=== PATIENT | female | born 1945 | race Caucasian/White ===

== ENCOUNTER 2020-11-27 00:21 | Inpatient (IN) ==
[2020-11-27] MEDS ORDERED: PANTOPRAZOLE 40 MG VIAL IV STA (00:56)
[2020-11-27] MEDS ORDERED: SODIUM CHLORIDE 0.9% 500 ML IV STA (00:56)
[2020-11-27] MEDS ORDERED: ONDANSETRON 4 MG/2 ML VIAL IV STA (00:56)
[2020-11-27] MEDS ORDERED: MORPHINE 4 MG/1 ML VIAL IV STA (00:56)
[2020-11-27 01:11] LABS: PT Patient Result 10.9 SECS (9.8-11.9)
[2020-11-27 01:20] LABS: Alanine Aminotransferase 12 U/L (13-56); Alkaline Phosphatase 57 U/L (45-117); Amylase 36 U/L (25-115); Aspartate Amino Transferase 59 U/L (0-37); Blood Urea Nitrogen 20 MG/DL (7-18); Calcium 8.9 MG/DL (8.5-10.1); Carbon Dioxide 25 MMOL/L (21-32); Estimated Glom Filtration Rate 37 ML/MIN; Glucose 145 MG/DL (74-106); Osmolality,Calculated 275.1 MOS/KG (273-304); Potassium 4.4 MMOL/L (3.5-5.1); Sodium 135 MMOL/L (136-145); Total Protein 6.6 G/DL (6.4-8.3)
[2020-11-27 01:23] LABS: Basophils % 0.3 % (0.0-0.8); Eosinophils # 0.2 10*3/uL (0.0-0.87); Eosinophils % 3.6 % (0.00-10.9); Hematocrit 32.1 VOL% (35.7-47.0); Hemoglobin 10.7 GM/DL (12.0-16.0); Immature Granulocytes % 2.6 %; Immature Granulocytes Absolute 0.15 #; Lymphocytes # 1.2 10*3/uL (1.4-4.0); Lymphocytes % 20.1 % (21.3-54.2); Mean Corpuscular HGB Conc 33.3 GM/DL (32-36); Mean Platelet Volume 10.4 FL (9.6-12.0); Monocytes % 10.5 % (1.7-12.7); Neutrophils % 62.9 % (38.7-73.9); Platelet Count 250 T/CUMM (130-400); Red Blood Count 3.69 MC/CUMM (3.8-5.5); Red Cell Distribution Width 12.3 % (9.3-17.3); White Blood Count 5.8 T/CUMM (4-12)
[2020-11-27] MEDS ORDERED: PIPERACILLIN/TAZOBACTAM 3,375 MG in SODIUM CHLORIDE 0.9% 100 ML IV STA (02:25)
[2020-11-27] MEDS ORDERED: GLUCAGON 1 MG VIAL IM PRN ×2 (03:16→03:45)
[2020-11-27] MEDS ORDERED: ONDANSETRON 4 MG/2 ML VIAL IV PRN (03:16)
[2020-11-27] MEDS ORDERED: DEXTROSE 50% 25 GM/50 ML VIAL IV PRN (03:16)
[2020-11-27] MEDS: SODIUM CHLORIDE 0.9% 1,000 ML IV SCH ×2 (03:55→18:30)
[2020-11-27] MEDS ORDERED: SODIUM CHLORIDE 0.9% 1,000 ML IV PRN (05:02)
[2020-11-27 05:44] LABS: Hematocrit 27.8 VOL% (35.7-47.0)
[2020-11-27] MEDS ORDERED: MAGNESIUM SULF RIDER 4 GM in PREMIX 1 EACH IV PRN (05:50)
[2020-11-27] MEDS ORDERED: MAGNESIUM SULF RIDER 2 GM in PREMIX 1 EACH IV PRN (05:50)
[2020-11-27 07:55] LABS: Bilirubin,Urine Negative (Negative); Blood, Urine Small mg/dL (Negative); Glucose,Urine (UA) Negative (Negative); Ketones,Urine Negative (Negative); Nitrite,Urine Negative (Negative); Protein,Urine Negative; RBC,Urine 1 /HPF (0-4); Squamous Epithelial Cell,Urine Occasional /HPF (0-10); Urine Appearance CLEAR (Clear); Urine Color Straw (Yellow); Urine Specific Gravity 1.039 (1.001-1.035); Urine Urobilinogen < 2.0 EU/DL (0.2-1.0); WBC,Urine <1 /HPF (0-6)
[2020-11-27 09:24] LABS: Hematocrit 23.9 VOL% (35.7-47.0); Hemoglobin 7.8 GM/DL (12.0-16.0)
[2020-11-27] MEDS: PIPERACILLIN/TAZOBACTAM 3,375 MG in SODIUM CHLORIDE 0.9% 100 ML IV SCH ×2 (11:05→20:44)
[2020-11-27] MEDS: SIMVASTATIN 20 MG TABLET PO SCH (20:08)
[2020-11-27] MEDS: traZODone 50 MG TABLET PO SCH (20:08)
[2020-11-27] MEDS: MORPHINE 4 MG/1 ML VIAL IV PRN (21:18)
[2020-11-27 21:37] LABS: Hematocrit 34.7 VOL% (35.7-47.0); Hemoglobin 11.2 GM/DL (12.0-16.0)
[2020-11-28] MEDS: PIPERACILLIN/TAZOBACTAM 3,375 MG in SODIUM CHLORIDE 0.9% 100 ML IV SCH ×4 (02:52→22:29)
[2020-11-28] MEDS: SODIUM CHLORIDE 0.9% 1,000 ML IV SCH ×3 (02:56→21:43)
[2020-11-28 06:54] LABS: Basophils % 0.4 % (0.0-0.8); Eosinophils # 0.1 10*3/uL (0.0-0.87); Eosinophils % 2.5 % (0.00-10.9); Hematocrit 30.5 VOL% (35.7-47.0); Hemoglobin 10.4 GM/DL (12.0-16.0); Immature Granulocytes % 4.6 %; Immature Granulocytes Absolute 0.24 #; Lymphocytes # 0.8 10*3/uL (1.4-4.0); Mean Corpuscular HGB Conc 34.1 GM/DL (32-36); Mean Corpuscular Volume 83.1 FL (87-102); Mean Platelet Volume 9.2 FL (9.6-12.0); Neutrophils % 67.5 % (38.7-73.9); Red Blood Count 3.67 MC/CUMM (3.8-5.5); Red Cell Distribution Width 14.1 % (9.3-17.3); White Blood Count 5.2 T/CUMM (4-12)
[2020-11-28 06:54] LABS: Osmolality,Calculated 279.3 MOS/KG (273-304)
[2020-11-28 06:57] LABS: Albumin 2.4 G/DL (3.4-5.0); Bilirubin,Direct 0.12 MG/DL (0.0-0.20); Bilirubin,Indirect 0.6 MG/DL (0.0-1.0); Bilirubin,Total 0.7 MG/DL (0.2-1.0); Total Protein 5.4 G/DL (6.4-8.3)
[2020-11-28 07:09] LABS: Platelet Count 145 T/CUMM (130-400)
[2020-11-28] MEDS: POTASSIUM CHLORIDE RIDER 10 MEQ in PREMIX 1 EACH IV PRN ×4 (11:02→23:03)
[2020-11-28] MEDS: MORPHINE 4 MG/1 ML VIAL IV PRN (12:05)
[2020-11-28 15:28] LABS: Hematocrit 31.1 VOL% (35.7-47.0); Hemoglobin 10.3 GM/DL (12.0-16.0)
[2020-11-28] MEDS ORDERED: SODIUM CHLORIDE 0.9% 1,000 ML IV PRN (16:25)
[2020-11-28] MEDS ORDERED: fentaNYL 100 MCG/2 ML VIAL IV ONE (16:32)
[2020-11-28] MEDS ORDERED: MIDAZOLAM 2 MG/2 ML VIAL IV ONE (16:32)
[2020-11-28] MEDS ORDERED: fentaNYL 100 MCG/2 ML VIAL ONE (16:34)
[2020-11-28] MEDS ORDERED: MIDAZOLAM 2 MG/2 ML VIAL ONE (16:34)
[2020-11-28] MEDS ORDERED: HEPARIN/NACL 0.9% 2 UNITS/ML 3,000 ML IV ONE (16:40)
[2020-11-28 19:17] LABS: Hematocrit 24.6 VOL% (35.7-47.0)
[2020-11-28] MEDS: SIMVASTATIN 20 MG TABLET PO SCH (21:37)
[2020-11-28] MEDS: traZODone 50 MG TABLET PO SCH (21:38)
[2020-11-28 22:13] LABS: Hemoglobin 7.9 GM/DL (12.0-16.0)
[2020-11-29] MEDS: POTASSIUM CHLORIDE RIDER 10 MEQ in PREMIX 1 EACH IV PRN (00:27)
[2020-11-29] MEDS: PIPERACILLIN/TAZOBACTAM 3,375 MG in SODIUM CHLORIDE 0.9% 100 ML IV SCH ×3 (06:00→21:07)
[2020-11-29 06:35] LABS: Basophils % 0.3 % (0.0-0.8); Eosinophils % 0.2 % (0.00-10.9); Hematocrit 24.4 VOL% (35.7-47.0); Hemoglobin 8.5 GM/DL (12.0-16.0); Immature Granulocytes % 5.4 %; Immature Granulocytes Absolute 0.49 #; Lymphocytes # 1.3 10*3/uL (1.4-4.0); Mean Corpuscular HGB Conc 34.8 GM/DL (32-36); Mean Corpuscular Volume 83.6 FL (87-102); Mean Platelet Volume 9.4 FL (9.6-12.0); Monocytes % 8.7 % (1.7-12.7); Neutrophils % 71.4 % (38.7-73.9); Platelet Count 162 T/CUMM (130-400); Red Blood Count 2.92 MC/CUMM (3.8-5.5); Red Cell Distribution Width 13.9 % (9.3-17.3); White Blood Count 9.1 T/CUMM (4-12)
[2020-11-29 07:00] LABS: Lymphocytes 14 % (20-55); Platelet Estimate Normal; Segmented Neutrophils 80 % (50-85); Total Cells Counted 100
[2020-11-29 07:01] LABS: Hypochromasia Slight; Microcytosis Slight
[2020-11-29 07:02] LABS: Alanine Aminotransferase < 9 U/L (13-56); Albumin 2.2 G/DL (3.4-5.0); Alkaline Phosphatase 30 U/L (45-117); Aspartate Amino Transferase 12 U/L (0-37); Blood Urea Nitrogen 9 MG/DL (7-18); Calcium 7.3 MG/DL (8.5-10.1); Carbon Dioxide 25 MMOL/L (21-32); Estimated Glom Filtration Rate 51 ML/MIN; Glucose 114 MG/DL (74-106); Osmolality,Calculated 282.1 MOS/KG (273-304); Potassium 3.6 MMOL/L (3.5-5.1); Sodium 142 MMOL/L (136-145); Total Protein 4.5 G/DL (6.4-8.3)
[2020-11-29] MEDS: POTASSIUM CHLORIDE 20 MEQ TABLET PO PRN (07:02)
[2020-11-29] MEDS: MORPHINE 4 MG/1 ML VIAL IV PRN ×2 (08:15→19:49)
[2020-11-29 10:39] LABS: Hematocrit 27.3 VOL% (35.7-47.0); Hemoglobin 9.2 GM/DL (12.0-16.0)
[2020-11-29] MEDS: SODIUM CHLORIDE 0.9% 1,000 ML IV SCH (17:31)
[2020-11-29 18:37] LABS: Hematocrit 25.9 VOL% (35.7-47.0); Hemoglobin 8.7 GM/DL (12.0-16.0)
[2020-11-29] MEDS: SIMVASTATIN 20 MG TABLET PO SCH (21:06)
[2020-11-29] MEDS: traZODone 50 MG TABLET PO SCH (21:06)
[2020-11-30 01:34] LABS: Basophils % 0.2 % (0.0-0.8); Eosinophils # 0.3 10*3/uL (0.0-0.87); Eosinophils % 2.9 % (0.00-10.9); Hematocrit 24.2 VOL% (35.7-47.0); Hemoglobin 8.2 GM/DL (12.0-16.0); Immature Granulocytes % 4.9 %; Immature Granulocytes Absolute 0.47 #; Lymphocytes # 1.2 10*3/uL (1.4-4.0); Lymphocytes % 12.8 % (21.3-54.2); Mean Corpuscular HGB Conc 33.9 GM/DL (32-36); Mean Corpuscular Volume 84.9 FL (87-102); Mean Platelet Volume 9.4 FL (9.6-12.0); NRBC # 0.02 10*3/uL; Neutrophils % 69.2 % (38.7-73.9); Platelet Count 138 T/CUMM (130-400); Red Blood Count 2.85 MC/CUMM (3.8-5.5); Red Cell Distribution Width 14.5 % (9.3-17.3); White Blood Count 9.5 T/CUMM (4-12)
[2020-11-30 01:55] LABS: Alanine Aminotransferase < 9 U/L (13-56); Albumin 2.1 G/DL (3.4-5.0); Alkaline Phosphatase 32 U/L (45-117); Aspartate Amino Transferase 10 U/L (0-37); Blood Urea Nitrogen 5 MG/DL (7-18); Calcium 7.4 MG/DL (8.5-10.1); Carbon Dioxide 30 MMOL/L (21-32); Estimated Glom Filtration Rate 58 ML/MIN; Glucose 101 MG/DL (74-106); Osmolality,Calculated 279.1 MOS/KG (273-304); Potassium 3.4 MMOL/L (3.5-5.1); Sodium 142 MMOL/L (136-145); Total Protein 4.7 G/DL (6.4-8.3)
[2020-11-30] MEDS: SODIUM CHLORIDE 0.9% 1,000 ML IV SCH ×2 (04:56→16:49)
[2020-11-30] MEDS: PIPERACILLIN/TAZOBACTAM 3,375 MG in SODIUM CHLORIDE 0.9% 100 ML IV SCH (06:31)
[2020-11-30] MEDS: POTASSIUM CHLORIDE 20 MEQ TABLET PO PRN ×5 (07:13→23:22)
[2020-11-30] MEDS: CIPROFLOXACIN 500 MG TABLET PO SCH ×2 (10:48→21:25)
[2020-11-30 11:37] LABS: Hematocrit 24.6 VOL% (35.7-47.0); Hemoglobin 8.3 GM/DL (12.0-16.0)
[2020-11-30] MEDS: metroNIDAZOLE 500 MG TABLET PO SCH ×2 (14:41→21:25)
[2020-11-30] MEDS: traZODone 50 MG TABLET PO SCH (21:25)
[2020-11-30] MEDS: SIMVASTATIN 20 MG TABLET PO SCH (21:25)
[2020-11-30] MEDS: MORPHINE 4 MG/1 ML VIAL IV PRN (21:28)
[2020-12-01] MEDS: SODIUM CHLORIDE 0.9% 1,000 ML IV SCH (02:20)
[2020-12-01] MEDS: metroNIDAZOLE 500 MG TABLET PO SCH ×3 (05:45→21:46)
[2020-12-01 06:15] LABS: Basophils % 0.1 % (0.0-0.8); Eosinophils # 0.2 10*3/uL (0.0-0.87); Eosinophils % 2.8 % (0.00-10.9); Hematocrit 22.5 VOL% (35.7-47.0); Hemoglobin 7.5 GM/DL (12.0-16.0); Immature Granulocytes % 3.5 %; Lymphocytes # 0.8 10*3/uL (1.4-4.0); Lymphocytes % 9.5 % (21.3-54.2); Mean Corpuscular HGB Conc 33.3 GM/DL (32-36); Mean Corpuscular Volume 85.9 FL (87-102); Mean Platelet Volume 9.4 FL (9.6-12.0); Monocytes % 8.2 % (1.7-12.7); Neutrophils % 75.9 % (38.7-73.9); Platelet Count 139 T/CUMM (130-400); Red Blood Count 2.62 MC/CUMM (3.8-5.5); Red Cell Distribution Width 14.5 % (9.3-17.3); White Blood Count 8.5 T/CUMM (4-12)
[2020-12-01 06:32] LABS: Calcium 7.7 MG/DL (8.5-10.1); Osmolality,Calculated 282.8 MOS/KG (273-304)
[2020-12-01] MEDS ORDERED: SODIUM CHLORIDE 0.9% 1,000 ML IV PRN ×2 (06:37→07:12)
[2020-12-01 06:50] LABS: Platelet Estimate Adequate
[2020-12-01 06:51] LABS: Anisocytosis 1+
[2020-12-01] MEDS: CIPROFLOXACIN 500 MG TABLET PO SCH ×2 (08:38→21:47)
[2020-12-01] MEDS: ACETAMINOPHEN 325 MG TABLET PO PRN ×2 (10:32→21:50)
[2020-12-01] MEDS: traZODone 50 MG TABLET PO SCH (21:47)
[2020-12-01] MEDS: SIMVASTATIN 20 MG TABLET PO SCH (21:47)
[2020-12-02] MEDS: metroNIDAZOLE 500 MG TABLET PO SCH (05:25)
[2020-12-02] MEDS: SODIUM CHLORIDE 0.9% 1,000 ML IV SCH ×2 (05:34→23:24)
[2020-12-02 06:49] LABS: Mean Platelet Volume 9.3 FL (9.6-12.0)
[2020-12-02 06:54] LABS: Basophils % 0.4 % (0.0-0.8); Eosinophils # 0.3 10*3/uL (0.0-0.87); Eosinophils % 3.1 % (0.00-10.9); Hematocrit 33.4 VOL% (35.7-47.0); Immature Granulocytes % 4.2 %; Immature Granulocytes Absolute 0.45 #; Lymphocytes # 1.2 10*3/uL (1.4-4.0); Mean Corpuscular HGB Conc 33.2 GM/DL (32-36); Mean Corpuscular Volume 86.5 FL (87-102); Monocytes % 7.3 % (1.7-12.7); Platelet Count 164 T/CUMM (130-400); Red Cell Distribution Width 14.9 % (9.3-17.3); White Blood Count 10.7 T/CUMM (4-12)
[2020-12-02 06:56] LABS: Red Blood Count 3.86 MC/CUMM (3.8-5.5)
[2020-12-02 06:57] LABS: Hemoglobin 11.1 GM/DL (12.0-16.0)
[2020-12-02 07:08] LABS: Calcium 8.2 MG/DL (8.5-10.1); Osmolality,Calculated 275.4 MOS/KG (273-304); Potassium 3.7 MMOL/L (3.5-5.1)
[2020-12-02] MEDS: CIPROFLOXACIN 500 MG TABLET PO SCH (10:11)
[2020-12-02] MEDS: CIPROFLOXACIN INJ 400 MG in PREMIX 1 EACH IV SCH (12:09)
[2020-12-02] MEDS: metroNIDAZOLE INJ 500 MG in PREMIX 1 EACH IV SCH ×2 (13:37→21:40)
[2020-12-02] MEDS: ACETAMINOPHEN 325 MG TABLET PO PRN (17:35)
[2020-12-02] MEDS: traZODone 50 MG TABLET PO SCH (21:40)
[2020-12-02] MEDS: SIMVASTATIN 20 MG TABLET PO SCH (21:40)
[2020-12-02] MEDS: MORPHINE 4 MG/1 ML VIAL IV PRN (21:49)
[2020-12-03] MEDS: CIPROFLOXACIN INJ 400 MG in PREMIX 1 EACH IV SCH ×2 (00:53→11:39)
[2020-12-03] MEDS: metroNIDAZOLE INJ 500 MG in PREMIX 1 EACH IV SCH ×3 (05:32→21:26)
[2020-12-03 06:21] LABS: Basophils % 0.4 % (0.0-0.8); Eosinophils # 0.3 10*3/uL (0.0-0.87); Eosinophils % 3.5 % (0.00-10.9); Hematocrit 30.1 VOL% (35.7-47.0); Immature Granulocytes % 3.6 %; Immature Granulocytes Absolute 0.28 #; Lymphocytes % 12.3 % (21.3-54.2); Mean Corpuscular HGB Conc 33.2 GM/DL (32-36); Mean Corpuscular Volume 86.5 FL (87-102); Mean Platelet Volume 9.6 FL (9.6-12.0); Neutrophils % 72.2 % (38.7-73.9); Platelet Count 180 T/CUMM (130-400); Red Blood Count 3.48 MC/CUMM (3.8-5.5); Red Cell Distribution Width 14.9 % (9.3-17.3); White Blood Count 7.8 T/CUMM (4-12)
[2020-12-03 07:10] LABS: Calcium 7.8 MG/DL (8.5-10.1); Osmolality,Calculated 277.3 MOS/KG (273-304); Potassium 3.4 MMOL/L (3.5-5.1)
[2020-12-03] MEDS: POTASSIUM CHLORIDE 20 MEQ TABLET PO PRN (10:14)
[2020-12-03] MEDS: ACETAMINOPHEN 325 MG TABLET PO PRN (16:00)
[2020-12-03] MEDS: traZODone 50 MG TABLET PO SCH (21:06)
[2020-12-03] MEDS: SIMVASTATIN 20 MG TABLET PO SCH (21:06)
[2020-12-03] MEDS ORDERED: ALUMINUM/MAGNES/SIMETH MAX STR 30 ML UDCUP PO PRN (21:23)
[2020-12-04] MEDS: CIPROFLOXACIN INJ 400 MG in PREMIX 1 EACH IV SCH (00:39)
[2020-12-04] MEDS: metroNIDAZOLE INJ 500 MG in PREMIX 1 EACH IV SCH (05:02)
[2020-12-04 06:53] LABS: Basophils # 0.1 10*3/uL (0.0-0.2); Basophils % 0.6 % (0.0-0.8); Eosinophils # 0.2 10*3/uL (0.0-0.87); Eosinophils % 2.5 % (0.00-10.9); Hematocrit 31.4 VOL% (35.7-47.0); Hemoglobin 10.7 GM/DL (12.0-16.0); Immature Granulocytes % 3.4 %; Lymphocytes # 0.9 10*3/uL (1.4-4.0); Lymphocytes % 10.2 % (21.3-54.2); Mean Corpuscular HGB Conc 34.1 GM/DL (32-36); Mean Corpuscular Volume 84.9 FL (87-102); Mean Platelet Volume 9.3 FL (9.6-12.0); Monocytes % 7.7 % (1.7-12.7); Neutrophils % 75.6 % (38.7-73.9); Platelet Count 205 T/CUMM (130-400); White Blood Count 8.7 T/CUMM (4-12)
[2020-12-04 07:21] LABS: Calcium 8.4 MG/DL (8.5-10.1); Osmolality,Calculated 279.1 MOS/KG (273-304); Potassium 3.7 MMOL/L (3.5-5.1)
[2020-12-04 08:31] VITALS: BP 128/54
[2020-12-04] MEDS ORDERED: FLUCONAZOLE 100 MG TABLET PO ONE (09:00)
[2020-12-04] MEDS ORDERED: PANTOPRAZOLE 40 MG TABLET PO SCH (09:00)
== END 2020-12-04 12:10 | disposition home or self-care (01) | DRG 357 ==
LOC: N.ED 00:21 → N.3E 00:21 → SUATTDRO 14:15
PROVIDERS: ADMIT Emergency Medicine; ATTEND Internal Medicine

== ENCOUNTER 2021-02-12 05:39 | Inpatient (IN) ==
[2021-02-04 11:20] LABS: Basophils % 0.2 % (0.0-0.8); Eosinophils # 0.1 10*3/uL (0.0-0.87); Eosinophils % 2.1 % (0.00-10.9); Hematocrit 40.5 VOL% (35.7-47.0); Immature Granulocytes % 0.6 %; Immature Granulocytes Absolute 0.03 #; Lymphocytes # 1.2 10*3/uL (1.4-4.0); Mean Corpuscular HGB Conc 32.1 GM/DL (32-36); Mean Corpuscular Volume 90.2 FL (87-102); Monocytes % 9.1 % (1.7-12.7); Platelet Count 171 T/CUMM (130-400); Red Blood Count 4.49 MC/CUMM (3.8-5.5); Red Cell Distribution Width 13.8 % (9.3-17.3); White Blood Count 4.7 T/CUMM (4-12)
[2021-02-04 16:28] LABS: Calcium 9.4 MG/DL (8.5-10.1); Osmolality,Calculated 283.1 MOS/KG (273-304); Potassium 3.9 MMOL/L (3.5-5.1)
[2021-02-12] MEDS ORDERED: ROCURONIUM 50 MG/5 ML VIAL IV ONE (06:04)
[2021-02-12] MEDS ORDERED: ONDANSETRON 4 MG/2 ML VIAL ONE ×2 (06:04→09:03)
[2021-02-12] MEDS ORDERED: propofoL 200 MG/20 ML VIAL IV ONE (06:04)
[2021-02-12] MEDS ORDERED: LIDOCAINE 2% 5 ML VIAL ONE (06:04)
[2021-02-12] MEDS ORDERED: INDOCYANINE GREEN 25 MG VIAL IV ONE ×2 (06:20→08:52)
[2021-02-12] MEDS ORDERED: SCOPOLAMINE 1.5 MG PATCH TRANSDERM ONE (06:24)
[2021-02-12] MEDS ORDERED: ACETAMINOPHEN 500 MG TABLET PO ONE (06:30)
[2021-02-12] MEDS ORDERED: cefOXitin 1,000 MG in SODIUM CHLORIDE 0.9% 100 ML IV ONE (06:30)
[2021-02-12] MEDS ORDERED: LACTATED RINGERS 1,000 ML IV SCH (06:30)
[2021-02-12] MEDS ORDERED: FAMOTIDINE 20 MG TABLET PO ONE (06:30)
[2021-02-12] MEDS ORDERED: ROPIVACAINE 0.5% 30 ML VIAL ONE (06:38)
[2021-02-12] MEDS ORDERED: fentaNYL 100 MCG/2 ML VIAL ONE ×2 (06:40→08:26)
[2021-02-12] MEDS ORDERED: ALBUMIN 5% 12.5 GM/250 ML VIAL IV ONE (07:22)
[2021-02-12] MEDS ORDERED: ePHEDrine 50 MG/ML VIAL ONE (07:27)
[2021-02-12] MEDS ORDERED: ETOMIDATE 40 MG/20 ML VIAL IV ONE (08:34)
[2021-02-12] MEDS ORDERED: SEVOFLURANE 1 UNIT/15 MINUTE INH ONE ×3 (08:34→09:03)
[2021-02-12] MEDS ORDERED: DEXAMETHASONE 4 MG/1 ML VIAL ONE (08:34)
[2021-02-12] MEDS ORDERED: LACTATED RINGERS 1,000 ML IV ONE (09:46)
[2021-02-12] MEDS ORDERED: NEOSTIGMINE 10 MG/10 ML VIAL ONE ×2 (10:00)
[2021-02-12 10:39] LABS: Bilirubin,Urine Negative (Negative); Blood, Urine Large mg/dL (Negative); Glucose,Urine (UA) Negative (Negative); Ketones,Urine Negative (Negative); Mucus,Urine Few /LPF (Occasional); Nitrite,Urine Negative (Negative); Protein,Urine 100 MG/DL; RBC,Urine 1869 /HPF (0-4); Urine Appearance CLEAR (Clear); Urine Specific Gravity 1.005 (1.001-1.035)
[2021-02-12] MEDS ORDERED: KETOROLAC 15 MG/1 ML VIAL IV PRN (11:08)
[2021-02-12] MEDS ORDERED: ALBUTEROL/IPRATROPIUM 3 ML NEB RESP TX PRN (11:08)
[2021-02-12] MEDS ORDERED: ACETAMINOPHEN 325 MG TABLET PO PRN (11:08)
[2021-02-12] MEDS ORDERED: HYDROmorphone 2 MG/1 ML VIAL IV PRN (11:43)
[2021-02-12] MEDS: LACTATED RINGERS 1,000 ML IV SCH (13:42)
[2021-02-12] MEDS: traZODone 50 MG TABLET PO SCH (21:25)
[2021-02-12] MEDS: ALVIMOPAN 12 MG CAPSULE PO SCH (21:26)
[2021-02-13] MEDS: LACTATED RINGERS 1,000 ML IV SCH ×3 (01:00→10:30)
[2021-02-13] MEDS: ENOXAPARIN 40 MG/0.4 ML SYRINGE SUBCUT SCH (05:07)
[2021-02-13 06:49] LABS: Hematocrit 32.9 VOL% (35.7-47.0); Hemoglobin 11.3 GM/DL (12.0-16.0); Immature Granulocytes % 0.6 %; Immature Granulocytes Absolute 0.06 #; Lymphocytes # 0.8 10*3/uL (1.4-4.0); Mean Corpuscular HGB Conc 34.3 GM/DL (32-36); Mean Corpuscular Volume 86.1 FL (87-102); Neutrophils % 82.4 % (38.7-73.9); Platelet Count 130 T/CUMM (130-400); Red Blood Count 3.82 MC/CUMM (3.8-5.5); Red Cell Distribution Width 13.8 % (9.3-17.3); White Blood Count 10.6 T/CUMM (4-12)
[2021-02-13 07:28] LABS: Calcium 8.3 MG/DL (8.5-10.1); Osmolality,Calculated 280.4 MOS/KG (273-304); Potassium 3.3 MMOL/L (3.5-5.1)
[2021-02-13] MEDS: PANTOPRAZOLE 40 MG VIAL IV SCH (09:38)
[2021-02-13] MEDS: ALVIMOPAN 12 MG CAPSULE PO SCH ×2 (09:38→20:44)
[2021-02-13] MEDS: hydroCHLOROthiazide 25 MG TABLET PO SCH (09:38)
[2021-02-13] MEDS: LOSARTAN 50 MG TABLET PO SCH (09:38)
[2021-02-13] MEDS: HYDROmorphone 2 MG/1 ML VIAL IV PRN (09:55)
[2021-02-13] MEDS: traZODone 50 MG TABLET PO SCH (20:44)
[2021-02-13] MEDS: ONDANSETRON 4 MG/2 ML VIAL IV PRN (20:51)
[2021-02-14] MEDS: ENOXAPARIN 40 MG/0.4 ML SYRINGE SUBCUT SCH (05:19)
[2021-02-14] MEDS: ONDANSETRON 4 MG/2 ML VIAL IV PRN ×2 (06:33→19:23)
[2021-02-14 06:34] LABS: Basophils % 0.1 % (0.0-0.8); Eosinophils % 0.4 % (0.00-10.9); Hemoglobin 10.8 GM/DL (12.0-16.0); Immature Granulocytes % 0.9 %; Immature Granulocytes Absolute 0.07 #; Lymphocytes # 0.7 10*3/uL (1.4-4.0); Lymphocytes % 8.7 % (21.3-54.2); Mean Corpuscular HGB Conc 33.8 GM/DL (32-36); Mean Corpuscular Volume 87.4 FL (87-102); Mean Platelet Volume 9.9 FL (9.6-12.0); Monocytes % 10.1 % (1.7-12.7); Neutrophils % 79.8 % (38.7-73.9); Platelet Count 108 T/CUMM (130-400); Red Blood Count 3.66 MC/CUMM (3.8-5.5); Red Cell Distribution Width 13.5 % (9.3-17.3); White Blood Count 7.8 T/CUMM (4-12)
[2021-02-14 06:46] LABS: Calcium 8.5 MG/DL (8.5-10.1); Osmolality,Calculated 280.4 MOS/KG (273-304); Potassium 3.2 MMOL/L (3.5-5.1)
[2021-02-14] MEDS: LACTATED RINGERS 1,000 ML IV SCH ×2 (07:01→09:36)
[2021-02-14] MEDS ORDERED: POTASSIUM CHLORIDE 20 MEQ TABLET PO ONE (07:20)
[2021-02-14] MEDS: ALVIMOPAN 12 MG CAPSULE PO SCH ×2 (09:23→21:34)
[2021-02-14] MEDS: LOSARTAN 50 MG TABLET PO SCH ×2 (09:26→12:53)
[2021-02-14] MEDS: hydroCHLOROthiazide 25 MG TABLET PO SCH ×2 (09:26→12:53)
[2021-02-14] MEDS: PANTOPRAZOLE 40 MG VIAL IV SCH (09:30)
[2021-02-14] MEDS: traZODone 50 MG TABLET PO SCH (21:34)
[2021-02-15] MEDS: ENOXAPARIN 40 MG/0.4 ML SYRINGE SUBCUT SCH (05:38)
[2021-02-15] MEDS: LACTATED RINGERS 1,000 ML IV SCH (06:40)
[2021-02-15] MEDS: hydroCHLOROthiazide 25 MG TABLET PO SCH (09:54)
[2021-02-15] MEDS: ALVIMOPAN 12 MG CAPSULE PO SCH ×2 (09:54→20:46)
[2021-02-15] MEDS: LOSARTAN 50 MG TABLET PO SCH (09:54)
[2021-02-15] MEDS: PANTOPRAZOLE 40 MG VIAL IV SCH (09:57)
[2021-02-15] MEDS: ONDANSETRON 4 MG/2 ML VIAL IV PRN (12:54)
[2021-02-15] MEDS: traZODone 50 MG TABLET PO SCH (20:46)
[2021-02-16] MEDS: LACTATED RINGERS 1,000 ML IV SCH (00:07)
[2021-02-16] MEDS: ENOXAPARIN 40 MG/0.4 ML SYRINGE SUBCUT SCH (05:25)
[2021-02-16] MEDS: LOSARTAN 50 MG TABLET PO SCH (09:12)
[2021-02-16] MEDS: hydroCHLOROthiazide 25 MG TABLET PO SCH (09:12)
[2021-02-16] MEDS: ALVIMOPAN 12 MG CAPSULE PO SCH ×2 (09:13→20:14)
[2021-02-16] MEDS: PANTOPRAZOLE 40 MG VIAL IV SCH (09:13)
[2021-02-16] MEDS: NYSTATIN 500,000 UNIT/5 ML UDCUP SWISH/SWAL SCH ×3 (12:59→20:14)
[2021-02-16] MEDS: traZODone 50 MG TABLET PO SCH (20:14)
[2021-02-16] MEDS: HYDROmorphone 2 MG/1 ML VIAL IV PRN (22:18)
[2021-02-17] MEDS: HYDROmorphone 2 MG/1 ML VIAL IV PRN (05:26)
[2021-02-17] MEDS: ENOXAPARIN 40 MG/0.4 ML SYRINGE SUBCUT SCH (05:26)
[2021-02-17 06:05] LABS: Basophils % 0.6 % (0.0-0.8); Eosinophils # 0.2 10*3/uL (0.0-0.87); Eosinophils % 2.7 % (0.00-10.9); Hematocrit 30.5 VOL% (35.7-47.0); Hemoglobin 10.4 GM/DL (12.0-16.0); Immature Granulocytes % 2.9 %; Lymphocytes % 13.6 % (21.3-54.2); Mean Corpuscular HGB Conc 34.1 GM/DL (32-36); Mean Corpuscular Volume 85.9 FL (87-102); Mean Platelet Volume 9.3 FL (9.6-12.0); Monocytes % 13.1 % (1.7-12.7); Neutrophils % 67.1 % (38.7-73.9); Platelet Count 154 T/CUMM (130-400); Red Blood Count 3.55 MC/CUMM (3.8-5.5); Red Cell Distribution Width 12.7 % (9.3-17.3)
[2021-02-17 06:31] LABS: Calcium 9.1 MG/DL (8.5-10.1); Potassium 3.4 MMOL/L (3.5-5.1)
[2021-02-17] MEDS: LOSARTAN 50 MG TABLET PO SCH (09:34)
[2021-02-17] MEDS: ALVIMOPAN 12 MG CAPSULE PO SCH (09:34)
[2021-02-17] MEDS: hydroCHLOROthiazide 25 MG TABLET PO SCH (09:34)
[2021-02-17] MEDS: NYSTATIN 500,000 UNIT/5 ML UDCUP SWISH/SWAL SCH ×2 (09:34→13:20)
[2021-02-17] MEDS: PANTOPRAZOLE 40 MG VIAL IV SCH (09:35)
[2021-02-17 11:02] VITALS: BP 138/60
[2021-02-17] MEDS: ONDANSETRON 4 MG/2 ML VIAL IV PRN (11:06)
== END 2021-02-17 13:20 | disposition home or self-care (01) | DRG 330 ==
LOC: N.OR 05:39 → N.SDSINP 05:41 → N.3E 12:16
PROVIDERS: ADMIT Surgery; ATTEND Surgery